=== PATIENT | female | born 1985 | race Caucasian/White ===

== ENCOUNTER 2017-03-20 20:51 | Emergency (ER) | payer OTHER ==
[~2017-03-20] VITALS: Ht 170.2 cm; Wt 63.5 kg
[~2017-03-20 20:51] MED LIST: CLIN300C93 PO; FOLI200T13 PO; IBUP200T5 PO
[2017-03-20 20:53] VITALS: BP 122/79
[2017-03-20 22:18] LABS: ASPARTATE AMINO TRANSFERASE 12 U/L (15-37); BLOOD UREA NITROGEN 10 mg/dL (7-18)
== END 2017-03-20 23:23 | disposition home or self-care (01) ==
LOC: ED 23:00
DX: R55 Syncope and collapse (principal); R20.2 Paresthesia of skin
CPT/HCPCS: 36415; 71010; 80053; 84703; 85025; 93005